=== PATIENT | female | born 1945 | race Caucasian/White ===

== ENCOUNTER 2018-02-21 09:56 | Day surgery (SDC) | payer MEDICARE, BC ==
[2018-02-16 15:29] VITALS: BMI 27.4
[~2018-02-21 09:56] MED LIST: LACTATED RINGERS 1,000 ML IV SCH; LIDOCAINE 1% 20 ML VIAL (10MG/ML) FOR IV START INTRADERMA PRN
[2018-02-21 10:31] VITALS: RESP 16; TEMP 98.3
[2018-02-21] MEDS ORDERED: LIDOCAINE 1% INJ 10MG/ML (20 ML MDV) ONE (11:19)
[2018-02-21] MEDS ORDERED: PROPOFOL 10 MG/ML 20 ML VIAL IV ONE (11:19)
--- NOTE | 2018-02-21 11:37 | P.GSHP ---
History of Present Illness H&P Date: 02/21/18 Chief Complaint: Diarrhea This is a 72-year-old female who's had complaints of diarrhea. Patient presents today for colonoscopy. Past Medical History Past Medical History: Blood Disorder, Hypertension Additional Past Medical History / Comment(s): ANEMIA. FREQ STOOLS, DIARRHEA. History of Any Multi-Drug Resistant Organisms: None Reported Past Surgical History: Appendectomy, Breast Surgery, Hysterectomy Additional Past Surgical History / Comment(s): COLONOSCOPY. LT BREAST LUMP REMOVED. Past Anesthesia/Blood Transfusion Reactions: No Reported Reaction Smoking Status: Former smoker - Past Family History Mother Family Medical History: Cancer Medications and Allergies Home Medications Medication Instructions Recorded Confirmed Type Calcium Carbonate [Calcium] 1,200 mg PO DAILY 02/16/18 02/21/18 History Cyanocobalamin (Vitamin B-12) 1,000 mcg PO DAILY 02/16/18 02/21/18 History [Vitamin B-12] Cyanocobalamin [Vitamin B-12 1,000 mcg SQ QMONTH 02/16/18 02/21/18 History Injection] Ferrous Sulfate [Feosol] 325 mg PO DAILY 02/16/18 02/16/18 History Lisinopril [Zestril] 20 mg PO BID 02/16/18 02/21/18 History Multivitamins, Thera [Multivitamin 1 tab PO DAILY 02/16/18 02/16/18 History (formulary)] traMADol HCL [Ultram] 50 mg PO BID 02/16/18 02/21/18 History Allergies Allergy/AdvReac Type Severity Reaction Status Date / Time No Known Allergies Allergy Verified 02/16/18 15:07 Surgical - Exam Vital Signs Temp Pulse Resp BP Pulse Ox 98.3 F 111 H 16 180/79 97 02/21/18 10:28 02/21/18 10:28 02/21/18 10:28 02/21/18 10:28 02/21/18 10:28 - General well developed, no distress - Eyes PERRL - ENT normal pinna - Neck no masses - Respiratory normal expansion - Cardiovascular Rhythm: regular - Abdomen Abdomen: soft, non tender Assessment and Plan Assessment: Diarrhea. We'll perform colonoscopy.
--- NOTE | 2018-02-21 11:56 | P.OP ---
Date of Procedure: 02/21/18 Preoperative Diagnosis: Diarrhea Postoperative Diagnosis: Normal colonoscopy Procedure(s) Performed: Colonoscopy Anesthesia: MAC Surgeon: Tru Rivera Pathology: none sent Condition: stable Disposition: PACU Description of Procedure: PROCEDURE: The patient was placed on the endoscopy table in the lateral position. Digital rectal examination was performed which revealed no abnormalities. nodules. Flexible colonoscope was then placed in the patient's anus and passed throughout the entire colon. The ileocecal valve was visualized. The cecum, ascending, transverse, descending and sigmoid colon were normal. The rectum was normal as well. There were no masses, polyps or diverticula noted in the entire colon. SUMMARY OF FINDINGS: Normal colonoscopy.
[2018-02-21 12:37] VITALS: BP 183/67; PULSE 57
== END 2018-02-21 12:54 | disposition home or self-care (01) ==
LOC: ORWHC2ENDO 09:56
PROVIDERS: ATTEND Surgery
DX: R19.7 Diarrhea, unspecified (principal); D64.9 Anemia, unspecified; I10 Essential (primary) hypertension; Z87.891 Personal history of nicotine dependence; Z79.899 Other long term (current) drug therapy; Z79.891 Long term (current) use of opiate analgesic
CPT/HCPCS: 45378; J2001; J2704

== ENCOUNTER → 2018-02-26 | Outpatient (CLI) | payer MEDICARE, BC ==
--- NOTE | 2018-02-27 09:54 | MM ---
Reason for exam: screening (asymptomatic). Last mammogram was performed 1 year ago. History: Patient is postmenopausal. Family history of breast cancer in mother at age 62. Benign excisional biopsy of the left breast, 1991. Took hormonal contraceptives for 1 year beginning at age 18. Physical Findings: A clinical breast exam by your physician is recommended on an annual basis and results should be correlated with mammographic findings. MG 3D Screening Mammo W/Cad Bilateral CC and MLO view(s) were taken. Prior study comparison: February 24, 2017, mammogram, performed at [facility]. February 22, 2016, mammogram, performed at [facility]. There are scattered fibroglandular densities. Benign appearing bilateral calcifications. No significant changes when compared with prior studies. ASSESSMENT: Benign, BI-RAD 2 RECOMMENDATION: Routine screening mammogram of both breasts in 1 year.
== END | disposition home or self-care (01) ==
LOC: RADMAMWWP 08:38
PROVIDERS: ATTEND Family Medicine
DX: Z12.31 Encounter for screening mammogram for malignant neoplasm of breast (principal)
CPT/HCPCS: 77063; 77067

== ENCOUNTER → 2019-02-27 | Outpatient (CLI) | payer MEDICARE, BC ==
--- NOTE | 2019-02-28 10:28 | MM ---
Reason for exam: screening (asymptomatic). Last mammogram was performed 1 year ago. History: Patient is postmenopausal. Family history of breast cancer in mother at age 62. Benign excisional biopsy of the left breast, 1991. Took hormonal contraceptives for 1 year beginning at age 18. Physical Findings: A clinical breast exam by your physician is recommended on an annual basis and results should be correlated with mammographic findings. MG 3D Screening Mammo W/Cad Bilateral CC and MLO view(s) were taken. Prior study comparison: February 26, 2018, bilateral MG 3d screening mammo w/cad. February 24, 2017, mammogram, performed at [facility]. The breast tissue is heterogeneously dense. This may lower the sensitivity of mammography. There are benign appearing round vascular calcifications bilaterally. There is no discrete abnormality. ASSESSMENT: Benign, BI-RAD 2 RECOMMENDATION: Routine screening mammogram of both breasts in 1 year.
== END | disposition home or self-care (01) ==
LOC: RADMAMWWP 10:55
PROVIDERS: ATTEND Family Medicine
DX: Z12.31 Encounter for screening mammogram for malignant neoplasm of breast (principal)
CPT/HCPCS: 77063; 77067

== ENCOUNTER → 2020-03-30 | Outpatient (CLI) | payer MEDICARE, BC ==
--- NOTE | 2020-04-01 10:31 | MM ---
Reason for exam: screening (asymptomatic). Last mammogram was performed 1 year and 1 month ago. History: Patient is postmenopausal. Family history of breast cancer in mother at age 62. Benign excisional biopsy of the left breast, 1991. Took hormonal contraceptives for 1 year beginning at age 18. Physical Findings: A clinical breast exam by your physician is recommended on an annual basis and results should be correlated with mammographic findings. MG 3D Screening Mammo W/Cad Bilateral CC and MLO view(s) were taken. Prior study comparison: February 27, 2019, bilateral MG 3d screening mammo w/cad. February 26, 2018, bilateral MG 3d screening mammo w/cad. There are scattered fibroglandular densities. No significant changes when compared with prior studies. ASSESSMENT: Benign, BI-RAD 2 RECOMMENDATION: Routine screening mammogram of both breasts in 1 year.
== END | disposition home or self-care (01) ==
LOC: RADMAMWWP 07:55
DX: Z12.31 Encounter for screening mammogram for malignant neoplasm of breast (principal)
CPT/HCPCS: 77063; 77067

== ENCOUNTER → 2020-12-16 | Outpatient (CLI) | payer MEDICARE, BC ==
[2020-12-16 10:59] LABS: HCT 39.2 % (34.0-46.0); MCH 29.3 pg (25.0-35.0); MCHC 33.1 g/dL (31.0-37.0); MCV 88.5 fL (80.0-100.0); Mean Platelet Volume 6.9; Platelet Count 405 k/uL (150-450); RBC 4.43 m/uL (3.80-5.40); RDW 13.6 % (11.5-15.5); WBC 11.5 k/uL (3.8-10.6)
[2020-12-16 11:15] LABS: Potassium 4.6 mmol/L (3.5-5.1)
== END | disposition home or self-care (01) ==
LOC: LABPAT 10:36
PROVIDERS: ATTEND Internal Medicine Interventional Cardiology
DX: Z01.818 Encounter for other preprocedural examination (principal); R94.39 Abnormal result of other cardiovascular function study
CPT/HCPCS: 36415; 80051; 82565; 84520; 85027

== ENCOUNTER 2020-12-22 06:02 | Day surgery (SDC) | payer MEDICARE, BC ==
[2020-12-16 12:02] VITALS: BMI 28.3
[~2020-12-22 06:02] MED LIST changes: +ALPRAZolam 0.25 MG TAB PO PRN; +ALPRAZolam 0.5 MG TAB PO PRN; +ASPIRIN 325 MG TAB PO STA; +HEPARIN SODIUM,PORCINE 10,000 UNIT in SODIUM CHLORIDE 0.9% 1,000 ML IRRIGATION PRN; +HEPARIN SODIUM,PORCINE 2,500 UNIT in SODIUM CHLORIDE 0.9% 250 ML IRRIGATION PRN; -LACTATED RINGERS 1,000 ML IV SCH; -LIDOCAINE 1% 20 ML VIAL (10MG/ML) FOR IV START INTRADERMA PRN; +NITROGLYCERIN SL TABS 0.4 MG TAB SUBLINGUAL PRN; +SODIUM CHLORIDE 0.9% 1,000 ML in EMPTY BAG 1 BAG IV ONE
[2020-12-22] MEDS ORDERED: SODIUM CHLORIDE 0.9% 1,000 ML IV ONE (06:19)
[2020-12-22 06:47] VITALS: TEMP 98.7
[2020-12-22] MEDS ORDERED: fentaNYL (PF) 50 MCG/ML 2 ML AMP IV ONE (08:00)
[2020-12-22] MEDS ORDERED: LIDOCAINE 1% INJ 10MG/ML (20 ML MDV) SQ ONE (08:00)
[2020-12-22] MEDS ORDERED: VERAPAMIL SYRINGE (5 MG/10 ML) INTRAARTER ONE (08:02)
[2020-12-22] MEDS ORDERED: MIDAZOLAM 2 MG/2 ML VIAL IV ONE (08:02)
[2020-12-22] MEDS ORDERED: HEPARIN SODIUM 1,000 UN/ML (10ML VL) IV ONE (08:11)
[2020-12-22] MEDS ORDERED: IOPAMIDOL-370 125ML BTL INJ ONE (08:16)
[2020-12-22] MEDS ORDERED: RX INFO: IV CONTRAST WAS GIVEN 1 EACH MISC MISCELLANE PRN (08:26)
[2020-12-22] MEDS ORDERED: SODIUM CHLORIDE 0.9% 1,000 ML IV SCH (08:30)
[2020-12-22] MEDS ORDERED: NEBIVOLOL HCL 10 MG PO SCH (09:00)
[2020-12-22] MEDS ORDERED: NON FORMULARY DRUG (Calcium Carbonate [Calcium] 600 MG Tablet) PO SCH (09:00)
[2020-12-22] MEDS ORDERED: NON FORMULARY DRUG (Cholecalciferol (Vitamin D3) [Vitamin D3 (5000 Iu)] 125 MCG Capsule) PO SCH (09:00)
[2020-12-22] MEDS ORDERED: hydroCHLOROthiazide 25 MG TAB PO SCH (09:00)
[2020-12-22] MEDS ORDERED: lisinopriL 20 MG TAB PO SCH (09:00)
[2020-12-22] MEDS ORDERED: MULTIVITAMINS, THERA 1 EACH TAB PO SCH (09:00)
[2020-12-22 09:03] VITALS: RESP 12
--- NOTE | 2020-12-22 09:16 | CC ---
CARDIAC CATHETERIZATION REPORT Mrs. Martins is a 75-year-old female with known history of hypertension, hyperlipidemia, and carotid disease who has been complaining of dyspnea on exertion. She underwent myocardial perfusion imaging that revealed evidence of reversible anterolateral wall defect. In view of that, recommendation was made regarding cardiac catheterization. The procedure as well as the risks and the complications were discussed with the patient who is in full understanding and agreement. PROCEDURE: Patient was brought to the director of cardiac cath lab in a fasting semi-sedated state after receiving fentanyl and Benadryl and achieving moderate conscious sedated state. Using Xylocaine anesthesia and Seldinger technique, a 6-Sinhala sheath was introduced in the right radial artery. Selective right and left coronary angiography performed using 5-Sinhala 3.5 bend, right and left Doug catheter. Multiple views of the coronary artery including hemiaxial views were obtained. The right Doug catheter was used to cross the aortic valve and left ventricular end-diastolic pressure was calculated. The patient had a transient complete heart block with crossing the aortic valve that resolved spontaneously. Multiple views of the coronary artery including hemiaxial views were obtained. Following that, catheter and sheaths were removed. Hemostasis was obtained with deployment of TR band. There was no immediate complication. Patient is returned to her room in stable condition. Of note, the patient received 3500 units of intravenous heparin as well as intra-arterial verapamil. FINDINGS: FLUOROSCOPY: There is calcification involving all the coronary arteries. LEFT MAIN: This is a short size vessel, bifurcating into left circumflex, left anterior descending artery. Left main coronary artery has no evidence of high-grade stenosis. LEFT ANTERIOR DESCENDING ARTERY: This is a large-sized vessel reaching to the apex with a wraparound apex segment giving rise to 2 diagonal branches of moderate caliber. The left anterior descending artery as well as branches have no evidence of obstructive coronary artery disease. LEFT CIRCUMFLEX: This is a nondominant vessel giving rise to 2 small obtuse marginal branches. The left circumflex as well as branches have no evidence of obstructive coronary artery disease. RIGHT CORONARY ARTERY: This is a large dominant vessel bifurcating distally PDA and posterolateral segment and branches. The right coronary artery in the proximal segment has 20% to 30% plaque. The rest of the vessel has no high-grade stenosis. LEFT VENTRICULOGRAM: Left ventriculogram was not performed. HEMODYNAMICS: There was no gradient across the aortic valve. The left ventricular end-diastolic pressure was was 12-14 mmHg. CONCLUSION: 1. Calcified coronary arteries. 2. Mild obstructive disease in the right coronary artery. RECOMMENDATION: In view of finding anatomy, I recommend continue medical therapy with aggressive coronary risk modifications that have been initiated. Those findings and recommendation were discussed with the patient and her family and they are in full understanding and agreement. MMODL / IJN: [id number] /
[2020-12-22 12:19] VITALS: BP 131/62; PULSE 59
[2020-12-23] MEDS ORDERED: ASPIRIN 325 MG TAB PO SCH (09:00)
[2021-01-16] MEDS ORDERED: CYANOCOBALAMIN 1,000 MCG/ML 1 ML VIAL SQ SCH (09:00)
== END 2020-12-22 13:28 | disposition home or self-care (01) ==
LOC: CATHCVL 06:02
PROVIDERS: ATTEND Internal Medicine Interventional Cardiology
DX: I44.2 Atrioventricular block, complete (principal); I25.10 Atherosclerotic heart disease of native coronary artery without angina pectoris; I25.84 Coronary atherosclerosis due to calcified coronary lesion; I10 Essential (primary) hypertension; E78.2 Mixed hyperlipidemia; R94.39 Abnormal result of other cardiovascular function study; E78.00 Pure hypercholesterolemia, unspecified; Z87.891 Personal history of nicotine dependence; I73.9 Peripheral vascular disease, unspecified; Z82.49 Family history of ischemic heart disease and other diseases of the circulatory system; Z79.82 Long term (current) use of aspirin; Z79.899 Other long term (current) drug therapy
CPT/HCPCS: 93458; C1769 ×2; C1894; J2250; J2001; J3010; J1644; Q9967

== ENCOUNTER → 2021-01-26 | Outpatient (CLI) | payer MEDICARE, BC ==
[2021-01-26 20:18] LABS: Chol/HDL Ratio 3.86; LDL Cholesterol,Calculated 38.8 mg/dL (0.0-131.0); VLDL Calculation 24.2 mg/dL (5.00-40.00)
== END | disposition home or self-care (01) ==
LOC: LABWHC1 07:02
PROVIDERS: ATTEND Internal Medicine Interventional Cardiology
DX: E78.2 Mixed hyperlipidemia (principal)
CPT/HCPCS: 36415; 80061; 84450; 84460

== ENCOUNTER → 2021-03-31 | Outpatient (CLI) | payer MEDICARE, BC ==
--- NOTE | 2021-04-05 08:11 | MM ---
Reason for exam: screening (asymptomatic). Last mammogram was performed 1 year ago. History: Patient is postmenopausal. Family history of breast cancer in mother at age 62. Benign excisional biopsy of the left breast, 1991. Took hormonal contraceptives for 1 year beginning at age 18. Physical Findings: A clinical breast exam by your physician is recommended on an annual basis and results should be correlated with mammographic findings. MG 3D Screening Mammo W/Cad Bilateral CC and MLO view(s) were taken. Prior study comparison: March 30, 2020, bilateral MG 3d screening mammo w/cad. February 27, 2019, bilateral MG 3d screening mammo w/cad. There are scattered fibroglandular densities. No significant changes when compared with prior studies. ASSESSMENT: Benign, BI-RAD 2 RECOMMENDATION: Routine screening mammogram of both breasts in 1 year.
== END | disposition home or self-care (01) ==
LOC: RADMAMWWP 13:06
PROVIDERS: ATTEND Family Medicine
DX: Z12.31 Encounter for screening mammogram for malignant neoplasm of breast (principal)
CPT/HCPCS: 77063; 77067

== ENCOUNTER → 2021-06-04 | Outpatient (CLI) | payer MEDICARE, BC ==
[2021-06-04 08:51] LABS: Appearance,Urine Cloudy (Clear); Bilirubin,Urine Negative (Negative); Blood,Urine Trace (Negative); Color,Urine Yellow; Glucose,Urine (UA) Negative (Negative); Ketones,Urine Negative (Negative); Leukocyte Esterase,Urine Large (Negative); Nitrite,Urine Negative (Negative); PH, Urine 5.5 (5.0-8.0); Protein,Urine Negative (Negative); RBC,Urine 1 /hpf (0-5); Specific Gravity,Urine 1.012 (1.001-1.035); Squamous Epithelial Cell,Urine 3 /hpf (0-4); Urobilinogen,Urine <2.0 mg/dL (<2.0); WBC,Urine 23 /hpf (0-5)
[2021-06-04 10:46] LABS: Basophils # (A) 0.09 X 10*3/uL (0.00-0.10); Basophils % (A) 0.9 %; Eosinophils # (A) 0.36 X 10*3/uL (0.04-0.35); Eosinophils % (A) 3.7 %; HCT 37.1 % (37.2-46.3); HGB 11.6 g/dL (12.0-15.0); Lymphocytes # (A) 2.27 X 10*3/uL (0.90-5.00); Lymphocytes % (A) 23.6 %; MCH 28.5 pg (27.0-32.0); MCHC 31.3 g/dL (32.0-37.0); MCV 91.2 fL (80.0-97.0); Mean Platelet Volume 9.9 fL (9.5-12.2); Monocytes # (A) 0.59 X 10*3/uL (0.20-1.00); Monocytes % (A) 6.1 %; Neutrophils # (A) 6.26 X 10*3/uL (1.80-7.70); Neutrophils % (A) 65.3 %; Platelet Count 441 X 10*3/uL (140-440); RBC 4.07 X 10*6/uL (4.10-5.20); RDW 13.2 % (11.5-14.5); WBC 9.61 X 10*3/uL (4.50-10.00)
[2021-06-05 00:16] LABS: % Iron Saturation 19.03 (12.00-45.00); ALT 53 U/L (8-44); AST 34 U/L (13-35); African American GFR (CKD) 82.4 (60.0-200.0); Albumin/Globulin Ratio 1.63 (1.60-3.17); Alkaline Phosphatase 75 U/L (41-126); BUN/Creat Ratio 26.25 Ratio (12.00-20.00); Calcium 9.6 mg/dL (8.7-10.3); Carbon Dioxide 22.5 mmol/L (21.6-31.8); Chloride 109 mmol/L (96-109); Chol/HDL Ratio 3.46; Cholesterol 83 mg/dL (0-200); Creatine Kinase 81 U/L (26-186); Folate, Serum >24.0 ng/mL; Globulin 2.7 g/dL (1.6-3.3); Glucose 122 mg/dL (70-110); Iron 63 ug/dL (50-170); LDL Cholesterol,Calculated 36.8 mg/dL (0.0-131.0); Non-African American GFR(CKD) 71.1 (60.0-200.0); Potassium 4.7 mmol/L (3.5-5.5); Sodium 144 mmol/L (135-145); Total Bilirubin 0.8 mg/dL (0.2-1.2); Total Iron Binding Capacity 331 ug/dL (228-460); Total Protein 7.1 g/dL (6.2-8.2)
[2021-06-05 06:41] LABS: Urine Alcohol Negative (Negative); Urine Barbiturate Negative (Negative); Urine Cocaine Negative (Negative); Urine Methadone Negative (Negative); Urine Opiates Negative (Negative); Urine Phencyclidine Negative (Negative)
== END | disposition home or self-care (01) ==
LOC: LABWHC1 07:09
PROVIDERS: ATTEND Family Medicine
DX: Z51.81 Encounter for therapeutic drug level monitoring (principal); E78.2 Mixed hyperlipidemia; R53.82 Chronic fatigue, unspecified
CPT/HCPCS: 36415; 80053; 80061; 80306; 81001; 82306; 82550; 82607; 82746; 83540; 83550; 84439; 84443; 85025; 87086

== ENCOUNTER → 2021-08-19 | Outpatient (CLI) | payer MEDICARE, BC ==
[2021-08-19 08:21] LABS: Appearance,Urine Turbid (Clear); Bilirubin,Urine Negative (Negative); Blood,Urine Small (Negative); Color,Urine Yellow; Glucose,Urine (UA) Negative (Negative); Ketones,Urine Negative (Negative); Leukocyte Esterase,Urine Large (Negative); Mucus,Urine Rare /hpf; Nitrite,Urine Negative (Negative); Protein,Urine 1+ (Negative); RBC,Urine 21 /hpf (0-5); Specific Gravity,Urine 1.022 (1.001-1.035); Squamous Epithelial Cell,Urine 44 /hpf (0-4); Urobilinogen,Urine <2.0 mg/dL (<2.0); WBC,Urine 113 /hpf (0-5)
[2021-08-19 11:16] LABS: Basophils # (A) 0.06 X 10*3/uL (0.00-0.10); Basophils % (A) 0.4 %; Eosinophils # (A) 0.03 X 10*3/uL (0.04-0.35); Eosinophils % (A) 0.2 %; HCT 35.5 % (37.2-46.3); HGB 11.6 g/dL (12.0-15.0); Lymphocytes # (A) 1.31 X 10*3/uL (0.90-5.00); Lymphocytes % (A) 8.7 %; MCH 29.2 pg (27.0-32.0); MCHC 32.7 g/dL (32.0-37.0); MCV 89.4 fL (80.0-97.0); Mean Platelet Volume 10.2 fL (9.5-12.2); Monocytes # (A) 0.89 X 10*3/uL (0.20-1.00); Monocytes % (A) 5.9 %; Neutrophils # (A) 12.77 X 10*3/uL (1.80-7.70); Neutrophils % (A) 84.4 %; Platelet Count 426 X 10*3/uL (140-440); RBC 3.97 X 10*6/uL (4.10-5.20); RDW 13.8 % (11.5-14.5); WBC 15.12 X 10*3/uL (4.50-10.00)
[2021-08-19 12:18] LABS: African American GFR (CKD) 71.5 (60.0-200.0); Albumin 4.5 g/dL (3.8-4.9); Albumin/Globulin Ratio 1.61 (1.60-3.17); Anion Gap 14.1 mmol/L (10.00-18.00); Blood Urea Nitrogen 33.3 mg/dL (9.0-27.0); Calcium 9.4 mg/dL (8.7-10.3); Carbon Dioxide 17.9 mmol/L (20.0-27.5); Globulin 2.8 g/dL (1.6-3.3); Non-African American GFR(CKD) 61.7 (60.0-200.0); Total Bilirubin 0.5 mg/dL (0.30-1.20); Total Protein 7.3 g/dL (6.2-8.2)
[2021-08-19 18:42] LABS: % Iron Saturation 15.38 (12.00-45.00)
== END | disposition home or self-care (01) ==
LOC: LABWHC1 07:01
PROVIDERS: ATTEND Family Medicine
DX: D64.9 Anemia, unspecified (principal); R79.89 Other specified abnormal findings of blood chemistry; R31.29 Other microscopic hematuria
CPT/HCPCS: 36415; 80053; 81001; 82728; 83540; 83550; 84443; 84481; 85025; 87086; 88108

== ENCOUNTER → 2022-04-01 | Outpatient (CLI) | payer MEDICARE, BC ==
--- NOTE | 2022-04-04 09:29 | MM ---
Reason for Exam: Screening (asymptomatic). Last screening mammogram was performed 12 month(s) ago. Patient History: Menarche at age 10. First Full-Term at age 20. Left ovary removed at age 59. Right ovary removed at age 59. Hysterectomy at age 59. Postmenopausal. Hormonal Contraceptives for 1 year from age 18 until age 19. 1991, Benign Excisional Biopsy on the left side. Mother had breast cancer, age 62. Risk Values: Minda 5 year model risk: 3.9%. NCI Lifetime model risk: 6.9%. Prior Study Comparison: 02/27/2019 Bilateral Screening Mammogram, [facility]. 03/30/2020 Bilateral Screening Mammogram, [facility]. 03/31/2021 Bilateral Screening Mammogram, [facility]. Tissue Density: There are scattered fibroglandular densities. Findings: Analyzed By CAD. There is no suspicious group of microcalcifications or new suspicious mass in either breast. Stable benign calcifications noted bilaterally. Overall Assessment: Benign, BI-RAD 2 Management: Screening Mammogram of both breasts in 1 year. A clinical breast exam by your physician is recommended on an annual basis and results should be correlated with mammographic findings. Electronically signed and approved by: Juan Miguel Jesus M.D. Radiologis
== END | disposition home or self-care (01) ==
LOC: RADMAMWWP 08:32
PROVIDERS: ATTEND Family Medicine
DX: Z12.31 Encounter for screening mammogram for malignant neoplasm of breast (principal)
CPT/HCPCS: 77063; 77067

== ENCOUNTER 2022-05-24 06:39 | Day surgery (SDC) | payer MEDICARE, BC ==
[2022-05-20 11:34] VITALS: BMI 28.3
[~2022-05-24 06:39] MED LIST changes: -ALPRAZolam 0.5 MG TAB PO PRN; +ASPIRIN 325 MG TAB PO PRN; -ASPIRIN 325 MG TAB PO STA; -HEPARIN SODIUM,PORCINE 10,000 UNIT in SODIUM CHLORIDE 0.9% 1,000 ML IRRIGATION PRN; -HEPARIN SODIUM,PORCINE 2,500 UNIT in SODIUM CHLORIDE 0.9% 250 ML IRRIGATION PRN; -NITROGLYCERIN SL TABS 0.4 MG TAB SUBLINGUAL PRN
[2022-05-24] MEDS ORDERED: SODIUM CHLORIDE 0.9% 1,000 ML IV ONE (07:07)
[2022-05-24 07:08] LABS: Basophils # (A) 0.1 k/uL (0-0.2); Basophils % (A) 1 %; Eosinophils # (A) 0.4 k/uL (0-0.7); Eosinophils % (A) 5 %; HCT 38.1 % (34.0-46.0); HGB 12.4 gm/dL (11.4-16.0); Lymphocytes % (A) 23 %; MCH 28.6 pg (25.0-35.0); MCHC 32.5 g/dL (31.0-37.0); MCV 88.2 fL (80.0-100.0); Mean Platelet Volume 7.2; Monocytes # (A) 0.4 k/uL (0-1.0); Monocytes % (A) 4 %; Neutrophils # (A) 5.7 k/uL (1.3-7.7); Neutrophils % (A) 65 %; Platelet Count 392 k/uL (150-450); RBC 4.31 m/uL (3.80-5.40); RDW 14.5 % (11.5-15.5); WBC 8.7 k/uL (3.8-10.6)
[2022-05-24] MEDS ORDERED: fentaNYL (PF) 50 MCG/ML 2 ML AMP ONE (08:50)
[2022-05-24] MEDS ORDERED: HEPARIN SODIUM 1,000 UN/ML (10ML VL) ONE (08:50)
[2022-05-24] MEDS: fentaNYL (PF) 50 MCG/ML 2 ML AMP IV ONE ×3 (09:03→09:52)
[2022-05-24] MEDS ORDERED: LIDOCAINE 1% INJ 10MG/ML (30 ML VIAL-PF) SQ ONE (09:03)
[2022-05-24] MEDS: MIDAZOLAM 2 MG/2 ML VIAL IV ONE ×3 (09:03→09:52)
[2022-05-24] MEDS: HEPARIN SODIUM 1,000 UN/ML (10ML VL) IV ONE ×4 (09:19→10:39)
[2022-05-24] MEDS ORDERED: SODIUM CHLORIDE 0.9% 500 ML 500 ML with niCARdipine 6.25 MG, NITROGLYCERIN-D5W PMX 0.05... IV ONE ×4 (09:45)
[2022-05-24] MEDS ORDERED: IOPAMIDOL-250 100ML BTL INTRAARTER ONE ×3 (10:30→11:19)
[2022-05-24] MEDS ORDERED: CLOPIDOGREL 75 MG TAB ONE (10:51)
[2022-05-24] MEDS ORDERED: CLOPIDOGREL 75 MG TAB PO ONE (10:55)
[2022-05-24] MEDS ORDERED: IV FLUID CONTINUATION 500 ML IV ONE (10:56)
--- NOTE | 2022-05-24 12:56 | IR ---
EXAMINATION TYPE: IR stent intravas non coronary DATE OF EXAM: 05/24/2022 CLINICAL HISTORY: Peripheral arterial disease. TECHNIQUE: Fluoroscopy. COMPARISON: None. FINDINGS: Fluoroscopic guidance was provided during pelvic angiogram with intravascular treatment pr radha performed by Dr. Bates. A total of 49.8 minutes of fluoroscopic time was utilized during the procedure and 2493 spot images was acquired. Please refer to procedure note for further details. IMPRESSION: As Above.
[2022-05-24] MEDS: SODIUM CHLORIDE 0.9% 1,000 ML IV SCH ×2 (19:23→22:22)
[2022-05-24] MEDS: METOPROLOL TARTRATE 25 MG TAB PO SCH (22:21)
[2022-05-24] MEDS: lisinopriL 20 MG TAB PO SCH (22:21)
[2022-05-25 08:13] VITALS: BP 139/67; PULSE 64; RESP 18; TEMP 97.8
[2022-05-25] MEDS: lisinopriL 20 MG TAB PO SCH (08:20)
[2022-05-25] MEDS: METOPROLOL TARTRATE 25 MG TAB PO SCH (08:21)
--- NOTE | 2022-05-25 08:39 | P.OP ---
Description of Procedure: PROCEDURES PERFORMED: Abdominal angiography with bilateral runoff, selective right lower extremity angiography, VETERINARY EPIDEMIOLOGIST and stenting of the right SFA with overlapping 6.0 x 100 mm, 6.0 x 140 mm, 6.0 x 120 mm Zilver MAGI, IVUS INDICATION: Garrett 3 claudication, abnormal ultrasound DATE OF PROCEDURE: 05/24/2022 CONSENT:I have discussed the risks, benefits and alternative therapies for the above-mentioned procedure and for both sedation/analgesia as well as necessary blood product administration, if indicated, as they pertain to this patient. The patient has indicated understanding and acceptance of the risks and procedures discussed. PROCEDURE: After the risks, benefits and alternatives of the above mentioned procedure explained in detail with the patient, informed consent was obtained. Patient was taken to the catheterization lab and prepped and draped in usual fashion. 1% lidocaine was used to anesthetize the left area. A 5-Mozambican sheath was placed in the left artery using modified Seldinger technique. A 5-Mozambican pigtail catheter was inserted to the abdominal aorta and DSA imaging was obtained. Patient tolerated the diagnostic portion well. Next, the decision was made to perform intervention of the right SFA. IV heparin was given. A Rim catheter was used to engage the right iliac and a 6Fr destination sheat was advanced to the right common femoral artery. A 0.035 glide wire in a glide catheter was used to initially engage the lesion. Unable to wire intraluminally and a dissection was extanded to the distal edge of the lesion. Right pedal access was obtained to attempt to become retrograde and a 4-Mozambican sheath was placed. Using a 0.014 BMW wire and microcatheter attempts were made at coming retrograde however a calcified distal cap with inability to engage. Therefore attempts were made at Crossing intimately with the 0.035 Glidewire, 0.018 Commander., 0.018 Assato wire however unsuccessful and eventually the lesion was reentered with the glide wire at the distal SFA. Balloon angioplasty was performed with a 4.0 balloon. Overlapping 6.0 x 100 mm and 6.0 x 140 mm Zilver MAGI were deployed. There was still limited flow and therefore IVUS was performed which showed extension of the dissection flap to the distal SFA. Therefore an additional 6.0 x 120 mm Zilver MAGI was deployed at the distal SFA. The stents were postdilated with a 6.0 balloon. Final angiograms were performed. Pre intervention there was 100% stenosis with no antegrade flow. Post intervention there was <10% stenosis and uninhibited flow. A left femoral angiogram was performed and anatomoy was suitable for closure. A 6Fr Angioseal was placed with hemostasis achieved. The patient tolerated the procedure well. Patient was transported back to the post catheterization holding area in stable condition. Conscious Sedation: Patient was monitored under the direct supervision of vision of myself for conscious sedation using Versed and fentanyl for a total duration of 138 minutes HEMODYNAMICS: Ao: 149/81 Abdominal aorta: The abdominal aorta has mild calcifcation. Renal arteries were not viewed. There is no significant dissection or aneurysm. There is no significant stenosis. Right lower extremity: Right common iliac artery: There is no significant stenosis. Right external iliac artery: There is no significant stenosis. Right internal iliac artery: There is no significant stenosis. Right common femoral artery: There is no significant stenosis. Right profunda: There is no significant stenosis. Right SFA: There is a long 100% right SFA stenosis. Right popliteal artery: There is no significant stenosis. Right tibioperoneal trunk: There is no significant stenosis. Right anterior tibial artery: There is no significant stenosis. Right porterior tibial artery: There is no significant stenosis. Right peroneal artery: There is no significant stenosis. Left lower extremity: Left common iliac artery: There is no significant stenosis. Left external iliac artery: There is no significant stenosis. Left internal iliac artery: There is no significant stenosis. Left common femoral artery: There is no significant stenosis. Left profunda: There is no significant stenosis. Left SFA: There is a mid left SFA 30-40% stenosis Left popliteal artery: There is no significant stenosis. Left tibioperoneal trunk: There is no significant stenosis. Left anterior tibial artery: There is no significant stenosis. Left porterior tibial artery: There is no significant stenosis. Left peroneal artery: There is no significant stenosis. FINAL IMPRESSION: 1. Peripheral arterial disease as described above with 100% right SFA stenosis and otherwise mild disease. 2. S/p VETERINARY EPIDEMIOLOGIST and stenting of the right SFA with overlapping 6.0 x 100 mm, 6.0 x 140 mm, 6.0 x 120 mm Zilver MAGI PLAN: 1. Aggressive risk factor modification per most recent ACC/AHA guidelines. 2. Aspirin and Plavix for 6 months then monotherapy with aspirin thereafter.
--- NOTE | 2022-05-25 08:40 | P.DS ---
Providers Attending physician: Sánchez Bates DO Primary care physician: [facility] Course: Patient is a pleasant 76-year-old female with history of PAD with [place] class III claudication symptoms. She therefore underwent abdominal angiography which showed a right SFA 100% stenosis. She underwent successful angioplasty and stenting on 05/24/2022 of the right SFA. She had improved distal pulses and no issues with her left femoral site. She was given IV fluids secondary to her chronic kidney disease. She was placed on aspirin and Plavix and was stable for discharge home without any hematoma. Plan - Discharge Summary Discharge Rx Participant: No New Discharge Prescriptions: Continue Clopidogrel [Plavix] 75 mg PO DAILY #90 tab No Action traMADol HCL [Ultram] 50 mg PO BID PRN PRN Reason: Pain lisinopriL [Zestril] 20 mg PO BID Cyanocobalamin [Vitamin B-12 Injection] 1,000 mcg SQ QMONTH Multivitamins, Thera [Multivitamin (formulary)] 1 tab PO DAILY Calcium Carbonate [Calcium] 1,200 mg PO DAILY Cholecalciferol (Vitamin D3) [Vitamin D3 (5000 Iu)] 125 mcg PO BID Rosuvastatin Calcium [Crestor] 40 mg PO DAILY #90 tab hydroCHLOROthiazide [Hydrodiuril] 25 mg PO DAILY Nebivolol HCl [Bystolic] 10 mg PO DAILY Aspirin 81 mg PO DAILY #0 Meloxicam [Mobic] 15 mg PO DAILY Metoprolol Succinate (ER) [Toprol Xl] 25 mg PO DAILY Acetaminophen [Tylenol Arthritis] 650 mg PO DAILY PRN PRN Reason: Pain Discharge Medication List Calcium Carbonate [Calcium] 1,200 mg PO DAILY 02/16/18 [History] Cyanocobalamin [Vitamin B-12 Injection] 1,000 mcg SQ QMONTH 02/16/18 [History] Multivitamins, Thera [Multivitamin (formulary)] 1 tab PO DAILY 02/16/18 [History] lisinopriL [Zestril] 20 mg PO BID 02/16/18 [History] traMADol HCL [Ultram] 50 mg PO BID PRN 02/16/18 [History] Cholecalciferol (Vitamin D3) [Vitamin D3 (5000 Iu)] 125 mcg PO BID 12/16/20 [History] Nebivolol HCl [Bystolic] 10 mg PO DAILY 12/16/20 [History] hydroCHLOROthiazide [Hydrodiuril] 25 mg PO DAILY 12/16/20 [History] Aspirin 81 mg PO DAILY #0 12/22/20 [Rx] Rosuvastatin Calcium [Crestor] 40 mg PO DAILY #90 tab 12/22/20 [Rx] Acetaminophen [Tylenol Arthritis] 650 mg PO DAILY PRN 05/20/22 [History] Meloxicam [Mobic] 15 mg PO DAILY 05/20/22 [History] Metoprolol Succinate (ER) [Toprol Xl] 25 mg PO DAILY 05/20/22 [History] Clopidogrel [Plavix] 75 mg PO DAILY #90 tab 05/25/22 [Rx] Follow up Appointment(s)/Referral(s): Sánchez Bates DO [STAFF PHYSICIAN] - 1 Week (APPOINTMENT MADE ON @ 2:15PM YOUR APPOINTMENT FOR THE IS CANCELLED) Patient Instructions/Handouts: Peripheral Artery Disease (ED), Moderate Sedation (DC) Activity/Diet/Wound Care/Special Instructions: *NO LIFTING, PUSHING, OR PULLING ANYTHING OVER 5 POUNDS FOR 5 DAYS *NO DRIVING FOR 3 DAYS *YOU CAN SHOWER TOMORROW BUT DO NOT SUBMERSE YOUR PUNCTURE SITE IN WATER FOR A FEW DAYS TO PREVENT INFECTION - SO NO TUB BATHS, POOLS, HOT TUBS, DISHES...ETC *ANY SIGNS OF BLEEDING (HARDNESS, SWELLING, OR EXCESSIVE BRUISING) HOLD DIRECT PRESSURE ON YOUR PUNCTURE SITE AND COME TO THE NEAREST EMERGENCY ROOM TO GET YOUR PUNCTURE SITE LOOKED AT - DO NOT DRIVE YOURSELF! EITHER CALL EMS OR HAVE SOMEONE DRIVE YOU!
[2022-05-25] MEDS ORDERED: CLOPIDOGREL 75 MG TAB PO SCH (09:00)
[2022-05-25] MEDS ORDERED: ASPIRIN 81 MG PO SCH (09:00)
== END 2022-05-25 10:30 | disposition home or self-care (01) ==
LOC: CATHCVL 06:39 → 6NMEDSUR 11:21 → CATHCVL 05-25 10:30
PROVIDERS: ATTEND Internal Medicine
DX: I70.213 Atherosclerosis of native arteries of extremities with intermittent claudication, bilateral legs (principal); I70.92 Chronic total occlusion of artery of the extremities; I10 Essential (primary) hypertension; E78.2 Mixed hyperlipidemia; I25.10 Atherosclerotic heart disease of native coronary artery without angina pectoris; Z20.822 Contact with and (suspected) exposure to COVID-19; Z82.49 Family history of ischemic heart disease and other diseases of the circulatory system; Z79.82 Long term (current) use of aspirin; Z79.899 Other long term (current) drug therapy; Z79.1 Long term (current) use of non-steroidal anti-inflammatories (NSAID)
CPT/HCPCS: 37226; 75625; 75716; 37252; 85025; 87635; C1769 ×9; C1760; C1894 ×2; C1725; C1887 ×2; C1753; C1874 ×2; J2250; J2001; J3010; J1644 ×2; Q9966

== ENCOUNTER → 2022-05-27 | Outpatient (CLI) | payer MEDICARE, BC ==
[2022-05-27 12:00] LABS: ALT 47 U/L (8-44); AST 41 U/L (13-35); Chol/HDL Ratio 2.98 Ratio; LDL Cholesterol,Calculated 40.7 mg/dL (0.0-131.0); VLDL Calculation 14.82 mg/dL (5.00-40.00)
== END | disposition home or self-care (01) ==
LOC: LABWHC1 06:57
PROVIDERS: ATTEND Internal Medicine Interventional Cardiology
DX: E78.2 Mixed hyperlipidemia (principal)
CPT/HCPCS: 36415; 80061; 84450; 84460

== ENCOUNTER → 2022-06-16 | Outpatient (CLI) | payer MEDICARE, BC ==
[2022-06-16 10:34] LABS: Basophils % (A) 1.2 %; Eosinophils # (A) 0.31 X 10*3/uL (0.04-0.35); Eosinophils % (A) 3.6 %; HCT 33.8 % (37.2-46.3); HGB 10.7 g/dL (12.0-15.0); Immature Grans, Automated 0.5 %; Lymphocytes # (A) 1.99 X 10*3/uL (0.90-5.00); Lymphocytes % (A) 23.2 %; MCHC 31.7 g/dL (32.0-37.0); MCV 88.5 fL (80.0-97.0); Monocytes # (A) 0.61 X 10*3/uL (0.20-1.00); Monocytes % (A) 7.1 %; NRBC Per 100 WBC 0 /100 WBCS (0.0-0.0); Neutrophils # (A) 5.53 X 10*3/uL (1.80-7.70); Neutrophils % (A) 64.4 %; Platelet Count 411 X 10*3/uL (140-440); RBC 3.82 X 10*6/uL (4.10-5.20); RDW 14.1 % (11.5-14.5); WBC 8.58 X 10*3/uL (4.50-10.00)
[2022-06-16 11:03] LABS: ALT 69 U/L (8-44); AST 52 U/L (13-35); African American GFR (CKD) 58.2 (60.0-200.0); Albumin 4.3 g/dL (3.8-4.9); Albumin/Globulin Ratio 1.67 (1.60-3.17); Alkaline Phosphatase 105 U/L (41-126); BUN/Creat Ratio 28.21 Ratio (12.00-20.00); Blood Urea Nitrogen 29.9 mg/dL (9.0-27.0); Calcium 9.3 mg/dL (8.7-10.3); Carbon Dioxide 22.8 mmol/L (20.0-27.5); Chloride 107 mmol/L (96-109); Creatine Kinase 89 U/L (26-186); Globulin 2.6 g/dL (1.6-3.3); Glucose 120 mg/dL (70-110); Iron 51 ug/dL (50-170); LDL Cholesterol,Calculated 39.6 mg/dL (0.0-131.0); Non-African American GFR(CKD) 50.3 (60.0-200.0); Potassium 4.8 mmol/L (3.5-5.5); Sodium 142 mmol/L (135-145); Total Iron Binding Capacity 386 ug/dL (228-460); Total Protein 6.8 g/dL (6.2-8.2); VLDL Calculation 15.56 mg/dL (5.00-40.00)
== END | disposition home or self-care (01) ==
LOC: LABWHC1 06:59
PROVIDERS: ATTEND Family Medicine
DX: E78.5 Hyperlipidemia, unspecified (principal); D51.0 Vitamin B12 deficiency anemia due to intrinsic factor deficiency
CPT/HCPCS: 36415; 80053; 80061; 82550; 82607; 82746; 83540; 83550; 85025

== ENCOUNTER 2022-07-28 07:11 | Day surgery (SDC) | payer MEDICARE, BC ==
[2022-07-28] MEDS ORDERED: LACTATED RINGERS 1,000 ML IV SCH (07:49)
[2022-07-28] MEDS ORDERED: LIDOCAINE 1% (10MG/ML) FOR IV START INTRADERMA PRN (07:49)
--- NOTE | 2022-07-28 08:31 | P.GSHP ---
History of Present Illness H&P Date: 07/28/22 Chief Complaint: Positive colon guard This is a 68-year-old female who's had a recent positive colon guard test. She presents today for colonoscopy. Past Medical History Past Medical History: Blood Disorder, Hypertension, Vascular Disorder Additional Past Medical History / Comment(s): ANEMIA. FREQ STOOLS, DIARRHEA. sept had 3 stents to rt leg 05/2022, hard of hearing worse on right History of Any Multi-Drug Resistant Organisms: None Reported Past Surgical History: Appendectomy, Breast Surgery, Heart Catheterization, Hysterectomy Additional Past Surgical History / Comment(s): COLONOSCOPY. LT BREAST LUMP REMOVED. Past Anesthesia/Blood Transfusion Reactions: No Reported Reaction Smoking Status: Former smoker - Past Family History Mother Family Medical History: Cancer Medications and Allergies Home Medications Medication Instructions Recorded Confirmed Type Calcium Carbonate [Calcium] 1,200 mg PO DAILY 02/16/18 07/26/22 History Cyanocobalamin [Vitamin B-12 1,000 mcg SQ QMONTH 02/16/18 07/26/22 History Injection] Multivitamins, Thera [Multivitamin 1 tab PO DAILY 02/16/18 07/26/22 History (formulary)] lisinopriL [Zestril] 20 mg PO BID 02/16/18 07/26/22 History traMADol HCL [Ultram] 50 mg PO BID PRN 02/16/18 07/26/22 History Cholecalciferol (Vitamin D3) 125 mcg PO BID 12/16/20 07/26/22 History [Vitamin D3 (5000 Iu)] Nebivolol HCl [Bystolic] 10 mg PO DAILY 12/16/20 07/26/22 History hydroCHLOROthiazide [Hydrodiuril] 25 mg PO DAILY 12/16/20 07/26/22 History Aspirin 81 mg PO DAILY #0 12/22/20 07/26/22 Rx Rosuvastatin Calcium [Crestor] 40 mg PO DAILY #90 tab 12/22/20 07/26/22 Rx Acetaminophen [Tylenol Arthritis] 650 mg PO DAILY PRN 05/20/22 07/26/22 History Meloxicam [Mobic] 15 mg PO DAILY 05/20/22 07/26/22 History Metoprolol Succinate (ER) [Toprol 25 mg PO DAILY 05/20/22 07/26/22 History Xl] Clopidogrel [Plavix] 75 mg PO DAILY #90 tab 05/25/22 07/26/22 Rx Allergies Allergy/AdvReac Type Severity Reaction Status Date / Time No Known Allergies Allergy Verified 07/26/22 13:37 Surgical - Exam - General well developed, well nourished, no distress - Eyes PERRL - ENT normal pinna - Neck no masses - Respiratory normal expansion - Cardiovascular Rhythm: regular - Abdomen Abdomen: soft, non tender Assessment and Plan Assessment: Positive colon guard. We'll perform colonoscopy.
[2022-07-28 08:39] VITALS: RESP 16; TEMP 97.3
[2022-07-28] MEDS ORDERED: PROPOFOL 10 MG/ML 20 ML VIAL IV ONE (08:54)
[2022-07-28] MEDS ORDERED: LIDOCAINE 2% INJ 20 MG/ML (2 ML VIAL) ONE (08:54)
--- NOTE | 2022-07-28 09:14 | P.OP ---
Date of Procedure: 07/28/22 Preoperative Diagnosis: Positive colon guard Postoperative Diagnosis: Normal colonoscopy Procedure(s) Performed: Colonoscopy Anesthesia: MAC Surgeon: Tru Rivera Pathology: none sent Condition: stable Disposition: PACU Description of Procedure: The patient's placed on the endoscopy table in the lateral position. He received IV sedation. Digital rectal exam was performed. This revealed no ebonized. The flexible colonoscope was then placed patient anus and passed throughout the entire colon. The ileocecal valve was visualized. The cecum and ascending and transverse colon appeared normal. The descending and sigmoid colon appeared normal. Scope was brought back the rectum this appeared normal. Scope withdrawn for patient.
[2022-07-28 09:42] VITALS: BP 126/63; PULSE 64
== END 2022-07-28 10:10 | disposition home or self-care (01) ==
LOC: ORWHC2ENDO 07:11
PROVIDERS: ATTEND Surgery
DX: R19.5 Other fecal abnormalities (principal); I10 Essential (primary) hypertension; D75.9 Disease of blood and blood-forming organs, unspecified; D64.9 Anemia, unspecified; Z95.5 Presence of coronary angioplasty implant and graft; Z90.710 Acquired absence of both cervix and uterus; Z90.49 Acquired absence of other specified parts of digestive tract; Z87.891 Personal history of nicotine dependence; Z79.899 Other long term (current) drug therapy; Z79.82 Long term (current) use of aspirin
CPT/HCPCS: G0121; J2704; J2001; 45378

== ENCOUNTER → 2022-12-01 | Outpatient (CLI) | payer MEDICARE, BC ==
--- NOTE | 2022-12-02 14:02 | US ---
EXAMINATION TYPE: US arterial LE single level DATE OF EXAM: 12/01/2022 11:19 AM CLINICAL HISTORY: I73.9,R09.89 PERIPHERAL VASCULAR DISEASE. pain feet cold had stent in right leg in 05/2022 History of: Smoker: Previous Hypertension: No Diabetic: No Hyperlipidemia: No TIA/CVA: No Previous Vascular Surgery: yes CAD: No NV: No Vascular Ulcers: No Claudication: No Gangrene: No Doppler Waveforms: Right: Monophasic waveforms throughout. Left: Monophasic waveforms involving the digit. Biphasic waveforms involving the popliteal, posterior tibial, dorsalis pedis, femoral and arteries. Right Brachial Pressure: 153 Left Brachial Pressure: 147 Ankle-Brachial Indices: Right: 0.86 Left: 0.91 Toe Brachial Indices: Right: 0.71 Left: 0.71 IMPRESSION: Mild to moderate peripheral arterial disease involving the right lower extremity with mi ld peripheral arterial disease involving the left lower extremity.
== END | disposition home or self-care (01) ==
LOC: RADUSWWP 10:17
PROVIDERS: ATTEND Family Medicine
DX: I73.9 Peripheral vascular disease, unspecified (principal); R09.89 Other specified symptoms and signs involving the circulatory and respiratory systems
CPT/HCPCS: 93922

== ENCOUNTER → 2023-02-28 | Outpatient (CLI) | payer MEDICARE, BC | END | disposition home or self-care (01) | LOC: RADUSWWP 08:35 | PROVIDERS: ATTEND Internal Medicine Cardiovascular Disease | DX: Z53.9 Procedure and treatment not carried out, unspecified reason (principal) ==

== ENCOUNTER → 2023-04-03 | Outpatient (CLI) | payer MEDICARE, BC ==
--- NOTE | 2023-04-04 19:52 | MM ---
Reason for Exam: Screening (asymptomatic). Last screening mammogram was performed 12 month(s) ago. Patient History: Menarche at age 10. First Full-Term at age 20. Left ovary removed at age 59. Right ovary removed at age 59. Hysterectomy at age 59. Postmenopausal. Hormonal Contraceptives for 1 year from age 18 until age 19. 1991, Benign Excisional Biopsy on the left side. Mother had breast cancer, age 62. Mother had breast cancer, age 77. Mother had ovarian cancer at or over age 50. Risk Values: Minda 5 year model risk: 3.8%. NCI Lifetime model risk: 6.3%. Prior Study Comparison: 02/24/2017 Screening Mammogram, [facility]. 02/26/2018 Bilateral Screening Mammogram, [facility]. 02/27/2019 Bilateral Screening Mammogram, [facility]. 03/30/2020 Bilateral Screening Mammogram, [facility]. 03/31/2021 Bilateral Screening Mammogram, [facility]. 04/01/2022 Bilateral MG 3D screening mammo w/cad, [facility]. Tissue Density: There are scattered fibroglandular densities. Findings: Analyzed By CAD. Benign bilateral vascular calcifications. There is no suspicious group of microcalcifications or new suspicious mass in either breast. Overall Assessment: Benign, BI-RAD 2 Management: Screening Mammogram of both breasts in 1 year. See note below in regards to patient's increased 5 year Minda score. Patient should continue monthly self-breast exams. A clinical breast exam by your physician is recommended on an annual basis. This exam should not preclude additional follow-up of suspicious palpable abnormalities. Note on Minda scores and lifetime risk: 1. A Minda score greater than 3% is considered moderate risk. If this is the case, consider specialist referral to assess eligibility for a risk reducing agent. 2. If overall lifetime risk for the development of breast cancer is 20% or higher, the patient may qualify for future screening with alternating mammogram and breast MRI. Electronically signed and approved by: Stacey Mckay M.D. Radiologist
== END | disposition home or self-care (01) ==
LOC: RADMAMWWP 08:38
PROVIDERS: ATTEND Family Medicine
DX: Z12.31 Encounter for screening mammogram for malignant neoplasm of breast (principal); Z78.0 Asymptomatic menopausal state; Z80.3 Family history of malignant neoplasm of breast; Z80.41 Family history of malignant neoplasm of ovary
CPT/HCPCS: 77063; 77067

== ENCOUNTER → 2023-04-04 | Outpatient (CLI) | payer MEDICARE, BC ==
--- NOTE | 2023-04-04 07:51 | CT ---
EXAMINATION TYPE: CT abdomen pelvis wo con DATE OF EXAM: 04/04/2023 COMPARISON: None INDICATION: ABD PAIN DLP: 381 mGycm, Automated exposure control for dose reduction was used. CONTRAST: 0 mL of Isovue 300. Study performed with Oral Contrast TECHNIQUE: Axial images were obtained from above the diaphragm to the pubic rami in the axial plane a t 5 mm thick sections. Reconstructed images are reviewed on the computer in the coronal plane. FINDINGS: Limited CT sections are obtained the lung bases. The lung bases are clear. Coronary artery calcific ation is present. CT ABDOMEN: There is thickening of the distal antrum and proximal duodenum candelario. Some inflammatory c hange may be adjacent to the distal second portion of the duodenum and pancreas head. Correlate for d uodenitis. Mild pancreatitis considered as well. Liver: Normal Spleen: Normal Pancreas: Some minimal inflammatory change adjacent to the pancreas head and duodenum may be present. With the more diffuse thickening of the duodenal wall duodenal etiology is favored although mild hall creatitis is considered. Adrenal glands: There is thickening of the right adrenal gland measuring 2.6 cm.r minimal thickening left adrenal gland is present at 1.0 cm. Gallbladder: Normal Kidneys: No masses are evident. No hydronephrosis is present. No cysts are present. There is a pun ctate calcification in the upper pole left kidney measuring 0.2 cm. Aorta: Vascular calcification is within the aorta. Inferior vena cava: Normal. CT PELVIS: Diffuse thickening within the descending portion of the duodenum is evident. Some thickening through the antrum of the stomach may also be present. Mild adjacent inflammatory changes near the head of th e pancreas and the duodenum are present. Remaining Loops of bowel within the abdomen and pelvis are normal. There are loops of bowel which are incompletely distended or lack oral contrast limiting their evaluation. Appendix: Not identified. No dilated tubular structure or inflammatory change is evident. Urinary bladder: Normal. Genitourinary structures: Uterus and ovaries are not identified. Osseous structures: No suspicious lytic or sclerotic lesions. IMPRESSIONS: 1. Thickening of the antrum of the stomach and second portion of the duodenum. Some inflammatory johnny nges are adjacent to the medial duodenum and pancreas head. Antritis and duodenitis are favored altho ugh some mild pancreatitis could be considered.
== END | disposition home or self-care (01) ==
LOC: RADCTMAIN 05:58
PROVIDERS: ATTEND Family Medicine
DX: K31.89 Other diseases of stomach and duodenum (principal); K29.80 Duodenitis without bleeding; K85.90 Acute pancreatitis without necrosis or infection, unspecified
CPT/HCPCS: 74176

== ENCOUNTER → 2023-07-15 | Outpatient (CLI) | payer MEDICARE, BC ==
[2023-07-15 13:44] LABS: ALT 47 U/L (8-44); AST 35 U/L (13-35); Chol/HDL Ratio 2.62 Ratio; LDL Cholesterol,Calculated 37.1 mg/dL (0.0-131.0); VLDL Calculation 11.78 mg/dL (5.00-40.00)
== END | disposition home or self-care (01) ==
LOC: LABWHC1 07:57
PROVIDERS: ATTEND Internal Medicine Interventional Cardiology
DX: E78.2 Mixed hyperlipidemia (principal)
CPT/HCPCS: 36415; 80061; 84450; 84460

== ENCOUNTER → 2024-01-02 | Outpatient (CLI) | payer MEDICARE, BC ==
[2024-01-02 12:35] LABS: ALT 42 U/L (8-44); AST 27 U/L (13-35); Albumin 4.3 g/dL (3.8-4.9); Albumin/Globulin Ratio 1.65 Ratio (1.60-3.17); Alkaline Phosphatase 97 U/L (41-126); BUN/Creat Ratio 22.44 Ratio (12.00-20.00); Blood Urea Nitrogen 20.2 mg/dL (9.0-27.0); Calcium 10.1 mg/dL (8.7-10.3); Carbon Dioxide 21.8 mmol/L (21.6-31.8); Chloride 108 mmol/L (96-109); Chol/HDL Ratio 2.59 Ratio; Globulin 2.6 g/dL (1.6-3.3); Glucose 112 mg/dL (70-110); LDL Cholesterol,Calculated 33.1 mg/dL (0.0-131.0); Potassium 4.3 mmol/L (3.5-5.5); Sodium 143 mmol/L (135-145); Total Bilirubin 0.7 mg/dL (0.3-1.2); Total Protein 6.9 g/dL (6.2-8.2); VLDL Calculation 14.18 mg/dL (5.00-40.00)
== END | disposition home or self-care (01) ==
LOC: LABWHC1 06:49
PROVIDERS: ATTEND Internal Medicine Interventional Cardiology
DX: E78.2 Mixed hyperlipidemia (principal)
CPT/HCPCS: 36415; 80053; 80061

== ENCOUNTER → 2024-04-04 | Outpatient (CLI) | payer MEDICARE, BC ==
--- NOTE | 2024-04-04 23:51 | BD ---
EXAMINATION TYPE: Axial Bone Density DATE OF EXAM: 04/04/2024 CLINICAL HISTORY: 78 years old Female. ICD-10 CODE: Z13.820 SCREENING FOR OSTEOPOROSIS Height: 60 Weight: 144.8 FRAX RISK QUESTIONS: Alcohol (3 or more units per day): no Family History (Parent hip fracture): no Glucocorticoids (More than 3mos): no (Ex: prednisone, prednisolone, methylprednisolone, dexamethasone, and hydrocortisone). History of Fracture in Adulthood: no Secondary Osteoporosis: 1. Type 1 Diabetes: no 2. Hyperthyroidism: no 3. Menopause before 45: yes 4. Malnutrition: no 5. Chronic liver disease: no Rheumatoid Arthritis: no Current Tobacco Use: no RISK FACTORS HISTORY OF: Surgery to Spine/Hip(right/left)/Wrist (right/left): no EXAM MEASUREMENTS: Bone mineral densitometry was performed using the [employer]. Bone mineral density as measured about the Lumbar spine is: ----- L1-L4(G/cm2): 0.827 T Score Values are as follows: ----- L1: -2.7 ----- L2: -3.7 ----- L3: -3.1 ----- L4: -2.5 ----- L1-L4: -2.9 Z Score Values are as follows: ----- L1: -0.9 ----- L2: -1.8 ----- L3: -1.3 ----- L4: -0.7 ----- L1-L4: -1.1 Bone mineral density : baseline Bone mineral density about the R hip (g/cm2): 0.761 Bone mineral density about the L hip (g/cm2): 0.733 T Score values are as follows: -----R Neck: -2.6 -----L Neck: -2.4 -----R Total: -2.0 -----L Total: -2.2 Z Score values are as follows: -----R Neck: -0.4 -----L Neck: -0.3 -----R Total: 0.0 -----L Total: -0.2 Bone mineral density : baseline FRAX%s: The graph provided illustrates a 19.9% chance for a major osteoporotic fx and a 7.1% chance f or the hips probability for fx in 10 years time. IMPRESSION: Osteoporosis (T Score less than -2.5). There is increased fracture risk and therapy is usually indicated based on age. Re-Screen 1-2 years. NOTE: T-SCORE=SD OF THE YOUNG ADULT MEAN.
--- NOTE | 2024-04-09 07:59 | MM ---
Reason for Exam: Screening (asymptomatic). Last screening mammogram was performed 12 month(s) ago. Patient History: Menarche at age 10. First Full-Term at age 20. Left ovary removed at age 59. Right ovary removed at age 59. Hysterectomy at age 59. Postmenopausal. Hormonal Contraceptives for 1 year from age 18 until age 19. 1991, Benign Excisional Biopsy on the left side. Mother had breast cancer, age 62. Mother had breast cancer, age 77. Mother had ovarian cancer at or over age 50. Risk Values: Minda 5 year model risk: 3.7%. NCI Lifetime model risk: 5.7%. Prior Study Comparison: 03/31/2021 Bilateral Screening Mammogram, [facility]. 04/01/2022 Bilateral MG 3D screening mammo w/cad, [facility]. 04/03/2023 Bilateral MG 3D screening mammo w/cad, [facility]. Tissue Density: The breasts are heterogeneously dense, which may obscure small masses. Findings: Analyzed By CAD. There is no suspicious group of microcalcifications or new suspicious mass in either breast. Overall Assessment: Benign, BI-RAD 2 Management: Screening Mammogram of both breasts in 1 year. . Patient should continue monthly self-breast exams. A clinical breast exam by your physician is recommended on an annual basis. This exam should not preclude additional follow-up of suspicious palpable abnormalities. Note on Minda scores and lifetime risk: 1. A Minda score greater than 3% is considered moderate risk. If this is the case, consider specialist referral to assess eligibility for a risk reducing agent. 2. If overall lifetime risk for the development of breast cancer is 20% or higher, the patient may qualify for future screening with alternating mammogram and breast MRI. Electronically signed and approved by: Juan Miguel Jesus M.D. Radiologis
== END | disposition home or self-care (01) ==
LOC: RADMAMWWP 12:57
PROVIDERS: ATTEND Student in an Organized Health Care Education/Training Program
DX: Z12.31 Encounter for screening mammogram for malignant neoplasm of breast (principal); R92.333 Mammographic heterogeneous density, bilateral breasts; M81.0 Age-related osteoporosis without current pathological fracture; Z78.0 Asymptomatic menopausal state; Z80.3 Family history of malignant neoplasm of breast; Z90.721 Acquired absence of ovaries, unilateral; Z80.41 Family history of malignant neoplasm of ovary
CPT/HCPCS: 77063; 77067; 77080

== ENCOUNTER → 2024-06-10 | Outpatient (CLI) | payer MEDICARE, BC ==
[2024-06-10 15:30] LABS: ALT 45 U/L (8-44); AST 31 U/L (13-35); Chol/HDL Ratio 2.81 Ratio; LDL Cholesterol,Calculated 42.6 mg/dL (0.0-131.0); VLDL Calculation 16.68 mg/dL (5.00-40.00)
== END | disposition home or self-care (01) ==
LOC: LABWHC1 07:41
PROVIDERS: ATTEND Internal Medicine Interventional Cardiology
DX: E78.2 Mixed hyperlipidemia (principal)
CPT/HCPCS: 36415; 80061; 84450; 84460

== ENCOUNTER → 2024-12-02 | Outpatient (CLI) | payer MEDICARE, BC ==
[2024-12-02 10:42] LABS: % Iron Saturation 16.49 (12.00-45.00); ALT 58 U/L (8-44); AST 39 U/L (13-35); Albumin 4.2 g/dL (3.8-4.9); Albumin/Globulin Ratio 1.56 Ratio (1.60-3.17); Alkaline Phosphatase 53 U/L (41-126); BUN/Creat Ratio 23.67 Ratio (12.00-20.00); Blood Urea Nitrogen 28.4 mg/dL (9.0-27.0); Calcium 9.6 mg/dL (8.7-10.3); Carbon Dioxide 20.1 mmol/L (21.6-31.8); Chloride 110 mmol/L (96-109); Chol/HDL Ratio 2.39 Ratio; Globulin 2.7 g/dL (1.6-3.3); Glucose 118 mg/dL (70-110); Iron 64 UG/DL (50-170); LDL Cholesterol,Calculated 28.8 mg/dL (0.0-131.0); Potassium 4.9 mmol/L (3.5-5.5); Sodium 142 mmol/L (135-145); Total Bilirubin 0.6 mg/dL (0.3-1.2); Total Iron Binding Capacity 388 UG/DL (228-460); Total Protein 6.9 g/dL (6.2-8.2)
[2024-12-02 10:53] LABS: Basophils # (A) 0.09 X 10*3/uL (0.00-0.10); Basophils % (A) 1.1 %; Eosinophils # (A) 0.36 X 10*3/uL (0.04-0.35); Eosinophils % (A) 4.3 %; HCT 35.9 % (37.2-46.3); HGB 11.1 g/dL (12.0-15.0); Lymphocytes # (A) 1.71 X 10*3/uL (0.90-5.00); Lymphocytes % (A) 20.3 %; MCH 27.3 pg (27.0-32.0); MCHC 30.9 g/dL (32.0-37.0); MCV 88.4 FL (80.0-97.0); Mean Platelet Volume 10.7 FL (9.5-12.2); Monocytes # (A) 0.59 X 10*3/uL (0.20-1.00); NRBC Per 100 WBC 0 X 10*3/uL (0.00-0.01); Neutrophils # (A) 5.67 X 10*3/uL (1.80-7.70); Neutrophils % (A) 67.1 %; Platelet Count 375 X 10*3/uL (140-440); RBC 4.06 X 10*6/uL (4.10-5.20); RDW 16.7 % (11.5-14.5); WBC 8.44 X 10*3/uL (4.50-10.00)
== END | disposition home or self-care (01) ==
LOC: LABWHC1 06:38
PROVIDERS: ATTEND Internal Medicine Interventional Cardiology
DX: I10 Essential (primary) hypertension (principal); E78.2 Mixed hyperlipidemia; E11.65 Type 2 diabetes mellitus with hyperglycemia; D50.9 Iron deficiency anemia, unspecified
CPT/HCPCS: 36415; 80053; 80061; 82728; 83036; 83540; 83550; 85025

== ENCOUNTER → 2025-04-07 | Outpatient (CLI) | payer MEDICARE, BC ==
--- NOTE | 2025-04-07 11:06 | MM ---
Reason for Exam: Screening (asymptomatic). Last screening mammogram was performed 12 month(s) ago. Patient History: Menarche at age 10. First Full-Term at age 20. Left ovary removed at age 59. Right ovary removed at age 59. Hysterectomy at age 59. Postmenopausal. Hormonal Contraceptives for 1 year from age 18 until age 19. 1991, Benign Excisional Biopsy on the left side. Mother had breast cancer, age 62. Mother had breast cancer, age 77. Mother had ovarian cancer at or over age 50. Risk Values: Minda 5 year model risk: 3.6%. NCI Lifetime model risk: 5.2%. Prior Study Comparison: 04/01/2022 Bilateral MG 3D screening mammo w/cad, [facility]. 04/03/2023 Bilateral MG 3D screening mammo w/cad, [facility]. 04/04/2024 Bilateral MG 3D screening mammo w/cad, [facility]. Tissue Density: There are scattered areas of fibroglandular density. Findings: Analyzed By CAD. Right breast: There is no suspicious group of microcalcifications or new suspicious mass. Left breast: There is no suspicious group of microcalcifications or new suspicious mass. Overall Assessment: Negative, BI-RAD 1 Management: Screening Mammogram of both breasts in [address] [facility] will attempt to contact patient to return for supplemental views and ultrasound if indicated. Patient should continue monthly self-breast exams. A clinical breast exam by your physician is recommended on an annual basis. This exam should not preclude additional follow-up of suspicious palpable abnormalities. Note on Minda scores and lifetime risk: 1. A Minda score greater than 3% is considered moderate risk. If this is the case, consider specialist referral to assess eligibility for a risk reducing agent. 2. If overall lifetime risk for the development of breast cancer is 20% or higher, the patient may qualify for future screening with alternating mammogram and breast MRI. [facility], , 04/07/2025 11:03 AM. Electronically signed and approved by: Sacha Driver DO
== END | disposition home or self-care (01) ==
LOC: RADMAMWWP 08:05
PROVIDERS: ATTEND Family Medicine
DX: Z12.31 Encounter for screening mammogram for malignant neoplasm of breast (principal); R92.323 Mammographic fibroglandular density, bilateral breasts; Z78.0 Asymptomatic menopausal state; Z80.3 Family history of malignant neoplasm of breast; Z92.0 Personal history of contraception
CPT/HCPCS: 77063; 77067